=== PATIENT | male | born 1970 | race Caucasian/White ===

== ENCOUNTER 2017-02-28 07:20 | Emergency (ER) | payer MEDICAID ==
[~2017-02-28] VITALS: Ht 162.6 cm; Wt 89.4 kg
[~2017-02-28 07:20] MED LIST: [UNRECOGNIZED DRUG - OTHER]
[2017-02-28 07:27] VITALS: Ht 162.6 cm; Wt 89.4 kg
--- NOTE | 2017-02-28 07:58 | ERD ---
ER Documentation Chief Complaint Date/Time DATE: 02/28/17 TIME: 07:57 Chief Complaint right knee pain HPI 46-year-old male with a remote history of a right knee fracture 26 years ago comes in with right medial knee pain for the past 1 month. Patient states that he does not have much pain noted at rest, described as achy, it is worse with any weightbearing and movement. Is in the medial aspect, nonradiating, and he has no difficulty with ambulation. He denies trauma or fevers or chills. ROS All systems reviewed and are negative except as per history of present illness. Medications Home Meds Active Scripts Naproxen* (Naprosyn*) 500 Mg Tablet, 500 MG PO BID Y for PAIN AND/OR INFLAMMATION, #30 TAB Prov:RADHA RAMIREZ PA-C 02/28/17 Reported Medications Ali 07/17/10 Allergies Allergies: Coded Allergies: No Known Allergies (Verified Allergy, Mild, 04/24/13) PMhx/Soc Medical and Surgical Hx: pt denies Medical Hx History of Surgery: Yes (RIGHT EAR) Anesthesia Reaction: No Hx Neurological Disorder: No Hx Respiratory Disorders: No Hx Cardiac Disorders: No Hx Psychiatric Problems: No Hx Miscellaneous Medical Probl: No Hx Alcohol Use: No Hx Substance Use: No Hx Tobacco Use: No Physical Exam Vitals Vital Signs Date Time Temp Pulse Resp B/P Pulse Ox O2 Delivery O2 Flow Rate FiO2 02/28/17 07:27 97.8 86 18 145/94 99 Physical Exam General: Well-developed, well-nourished. The patient appears in no acute distress. HEENT: Head is normocephalic, atraumatic. No scleral icterus. Neck: Supple. Nontender. Lungs: Clear to auscultation. Normal air movement. Heart: Regular rate and rhythm. S1 and S2 are normal. No murmurs, gallops, or rubs. Abdomen: Nondistended. Extremities: No joint line tenderness, no bony deformities, no erythema, warmth. Patient has full range of motion with right knee flexion and extension. Compartments are soft, knee is atraumatic. Neurologic: Alert and oriented 3. No focal deficits. Normal speech and gait. Skin: Normal turgor. No rash or lesions. Results 24 hrs Current Medications Medications (Trade) Dose Ordered Sig/Martin Route PRN Reason Start Time Stop Time Status Last Admin Dose Admin Ibuprofen (Motrin) 600 mg ONCE ONCE PO 02/28/17 08:00 02/28/17 08:01 DC 02/28/17 08:00 PROCEDURE: Right knee series. CLINICAL INDICATION: Right knee pain times 1 month. TECHNIQUE: Three views of the right knee are available for review. COMPARISON: None available FINDINGS: There is normal mineralization and alignment of the bones of the right knee. No acute fracture or dislocation is identified. There is tricompartmental joint space narrowing and tricompartmental osteophytosis. No joint effusion is identified. There is a questionable small loose body within the anterior joint space. Overlying soft tissues are unremarkable. IMPRESSION: 1. 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 2. Questionable small loose body within the joint space. No joint effusion. RPTAT: KK .Eric Duque MD, MD Date Time Electronically viewed and signed by .Eric Duque MD, MD on 2016 08:26 Procedures/MDM ED course: Patient was given ibuprofen 600 mg for pain. MDM: 46-year-old male comes in with right-sided knee pain for 1 month, patient has a history of remote trauma, has tricompartmental arthritis. He has full range of motion without any signs of infection. Differentials considered include a fracture, subluxation, meniscal injury, septic arthritis, osteomyelitis. Departure Diagnosis: Primary Impression: Knee pain Condition: RADHA Busby PA-C February 28, 2017 07:58
[2017-02-28] MEDS ORDERED: IBUPROFEN 600 MG TAB PO ONE (08:00)
--- NOTE | 2017-02-28 08:26 | RADRPT ---
PROCEDURE: Right knee series. CLINICAL INDICATION: Right knee pain times 1 month. TECHNIQUE: Three views of the right knee are available for review. COMPARISON: None available FINDINGS: There is normal mineralization and alignment of the bones of the right knee. No acute fracture or d islocation is identified. There is tricompartmental joint space narrowing and tricompartmental oste ophytosis. No joint effusion is identified. There is a questionable small loose body within the an terior joint space. Overlying soft tissues are unremarkable. IMPRESSION: 1. 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 2. Questionable small loose body within the joint space. No joint effusion. RPTAT: KK .Eric Duque MD, MD Date Time Electronically viewed and signed by .Eric Duque MD, on 02/28/2017 08:26 .B/
[2017-02-28] MEDS ORDERED: NAPR-260 PO (08:41)
[2017-02-28 09:42] VITALS: BP 132/79; PULSE 78; RESP 18; TEMP 98.3
== END 2017-02-28 09:43 | disposition home or self-care (01) ==
LOC: FTE 07:20
DX: M25.561 Pain in right knee (principal)
CPT/HCPCS: 73562; Z7610